=== PATIENT | male | born 1970 ===

== ENCOUNTER 2022-08-29 23:08 | Observation (INO) | payer BC, OTHER ==
[2022-08-30 00:10] LABS: CHLORIDE,CL 103 mmol/L (98-107); SODIUM,NA 138 mmol/L (136-145)
[2022-08-30 00:13] LABS: ESTIMATED GFR 44 mL/min (>=60)
[2022-08-30] MEDS ORDERED: Lactated Ringers 1,000 ML IV SCH (00:30)
[2022-08-30 00:41] LABS: CORONAVIRUS COVID-19 NAA NEGATIVE (NEGATIVE); RESPIRATORY SYNCYTIAL VIR NAA NEGATIVE (NEGATIVE)
[2022-08-30] MEDS: cefTRIAXone 2 GM in Sodium Chloride 0.9% 100 ML IV SCH ×2 (01:16→23:57)
[2022-08-30] MEDS: Azithromycin 500 MG in Sodium Chloride 0.9% 250 ML IV SCH (01:49)
[2022-08-30] MEDS ORDERED: Acetaminophen 325 MG Tab PO PRN (02:42)
[2022-08-30] MEDS ORDERED: Polyethylene Glycol 3350 Powder 17 GM Packet PO PRN (02:42)
[2022-08-30] MEDS ORDERED: Furosemide 40 MG/4 ML VIAL IVPUSH STA (02:45)
[2022-08-30] MEDS: Albuterol/Ipratropium 3.0-0.5 MG/3 ML Neb Soln NEB PRN ×2 (03:03→19:52)
[2022-08-30] MEDS: Ondansetron 4 MG Tab.DIS PO PRN (03:03)
[2022-08-30] MEDS: Enoxaparin 40 MG/0.4 ML Syringe SUBCUT SCH (07:47)
[2022-08-30] MEDS: Formoterol/Mometasone 100-5 MCG 8.8 GM Inhaler IH SCH ×2 (07:47→17:13)
[2022-08-30] MEDS ORDERED: Non-Formulary Medication 1 Each (Tiotropium [Spiriva Handihaler] 18 MCG Cap) PO SCH (08:00)
[2022-08-30 08:31] LABS: ANION GAP 12.9 meq/L (7-15)
[2022-08-30] MEDS: Magnesium Chloride 64 MG Tab.ER PO SCH ×2 (13:29→17:13)
[2022-08-30] MEDS: Bumetanide 1 MG Tab PO SCH (13:29)
[2022-08-30 13:58] LABS: HEMOGLOBIN A1C 5.3 % (4.3-5.7)
[2022-08-31] MEDS: Azithromycin 500 MG in Sodium Chloride 0.9% 250 ML IV SCH (00:36)
[2022-08-31] MEDS: Ondansetron 4 MG Tab.DIS PO PRN (01:40)
[2022-08-31 02:35] LABS: ANION GAP 20.6 meq/L (7-15)
[2022-08-31] MEDS ORDERED: Heparin Sodium 5,000 Units/ML Vial IVPUSH ONE (03:36)
[2022-08-31] MEDS ORDERED: Heparin Sodium/0.45% NaCl 500 ML IV SCH (03:45)
[2022-08-31] MEDS ORDERED: Cefepime 1 GM in Sodium Chloride 0.9% 50 ML IV ONE (07:19)
[2022-08-31] MEDS ORDERED: Cefepime 1 GM Vial ONE (08:14)
[2022-08-31] MEDS: Enoxaparin 40 MG/0.4 ML Syringe SUBCUT SCH (08:34)
[2022-08-31] MEDS ORDERED: Sodium Chloride 0.9% 1,000 ML IV SCH ×2 (09:30→10:00)
[2022-08-31] MEDS: Magnesium Chloride 64 MG Tab.ER PO SCH (09:31)
[2022-08-31] MEDS: Bumetanide 1 MG Tab PO SCH (09:31)
[2022-08-31] MEDS: Formoterol/Mometasone 100-5 MCG 8.8 GM Inhaler IH SCH (09:31)
== END 2022-08-31 10:40 ==
LOC: LL.ED 23:08 → LL.MS 08-30 00:40
PROVIDERS: ADMIT Hospitalist; ATTEND Hospitalist
DX: R09.02 Hypoxemia (principal); N17.9 Acute kidney failure, unspecified; I50.9 Heart failure, unspecified; J18.9 Pneumonia, unspecified organism; J44.9 Chronic obstructive pulmonary disease, unspecified; G62.9 Polyneuropathy, unspecified; J90 Pleural effusion, not elsewhere classified; Z79.899 Other long term (current) drug therapy; Z87.891 Personal history of nicotine dependence; Z20.822 Contact with and (suspected) exposure to COVID-19
CPT/HCPCS: 0241U; 36415; 71046; 71250; 80048; 80053; 81001; 83036; 83605; 83735; 83880; 84484; 85025; 85027; 85379; 85610; 85730; 87040; 93005; 93010; 94640; 96365; 96366; 96367; 96368; 96372; 96375; 96376; 99217; 99285; A9270-GY; G0378; J0456; J0692; J0696; J1644; J1650; J1940; J7030; J7050; J7620-GY